=== PATIENT | male | born 2000 | race Hispanic/Latino ===

== ENCOUNTER 2025-03-02 16:31 | Emergency (ER) | payer SELFPAY ==
[~2025-03-02] VITALS: Ht 175.3 cm; Wt 81.1 kg
[2025-03-02 18:20] VITALS: BP 128/90
== END 2025-03-02 18:20 | disposition home or self-care (01) ==
LOC: ED 16:31
DX: J02.9 Acute pharyngitis, unspecified (principal)
CPT/HCPCS: 87651; 99283; J8540